=== PATIENT | female | born 1960 | race Caucasian/White ===

== ENCOUNTER → 2019-05-26 15:58 | Outpatient (CLI) | payer OTHER, SELFPAY ==
--- NOTE | 2019-05-26 | ECG_ITS ---
APPROVED REPORT Exam: Resting ECG HR:54 bpm ECG Measurements Heart Rate 54 AXES MO 138 P -4 QRSd 82 QRS 57 QT 442 T 37 QTc 419 <Conclusion> Sinus bradycardia Incomplete RBBB Otherwise normal ECG Electronically signed by : Uri Velasquez, 05/28/2019 16:58:23
[2019-05-26 17:48] LABS: Basophils # 0.1 K/mm3 (0-0.2); Basophils % 1.2 % (0.1-2.0); Eosinophils # 0.1 K/mm3 (0.0-0.4); Eosinophils % 1.9 % (0.1-12.0); Hematocrit 40.6 % (37.0-47.0); Hemoglobin 13.7 g/dL (12.2-16.2); Lymphocytes % 45.5 % (10-50); Mean Corpuscular HGB Conc 33.8 g/dL (31.8-35.4); Mean Corpuscular Hemoglobin 30.8 pg (27.0-31.2); Mean Corpuscular Volume 91.2 fl (81-99); Mean Platelet Volume 7.8 fl (7.4-10.4); Monocytes # 0.3 K/mm3 (0.1-1.0); Monocytes % 5.2 % (1.7-9.3); Neutrophils % 46.2 % (37.0-80.0); Platelet Count 267 K/mm3 (142-424); Red Blood Count 4.45 M/mm3 (4.20-5.40); Red Cell Distribution Width 12.5 % (11.5-17.5); White Blood Count 6.5 K/mm3 (4.8-10.8)
== END ==
PROVIDERS: Visit Provider Otolaryngology
DX: Z01.818 Encounter for other preprocedural examination (principal); D49.2 Neoplasm of unspecified behavior of bone, soft tissue, and skin; D23.122 Other benign neoplasm of skin of left lower eyelid, including canthus
CPT/HCPCS: 36415; 85025; 93005

== ENCOUNTER 2023-02-06 06:55 | Emergency (ER) | payer SELFPAY ==
[2023-02-06 07:05] VITALS: BP 146/84; PULSE 80; O2SAT 99
[2023-02-06 07:18] VITALS: BP 146/84; PULSE 84; RESP 15; TEMP 36.9; O2SAT 98; BMI 24.3
--- NOTE | 2023-02-06 07:28 | HMH.EDSKAF ---
Discharge Plan Disposition Patient Disposition: Home, Self-Care Prescriptions Prescriptions: New prednisone [prednisone] 20 mg tablet 20 mg PO BID Qty: 10 0RF Referrals Follow up/Referrals: Paul Whitten MD [Primary Care Provider] - See instructions Clinical Impressions Clinical Impression: Urticaria Instructions Patient Instructions: DI for Hives Discharge ED Provider: Fish (ED)Paul Skin/Abscess/FB HPI General Chief complaint: Skin/Abscess/Foreign Body Stated complaint: Rash; possible allergic reaction Time Seen by Provider: 02/06/23 07:28 Mode of Arrival: Ambulatory Source of Information: Patient and Medical Record Limitations: No Limitations Description of Symptoms (Recalled from ER Triage Doc. by RN): pt comes in with c/o rash that began sunday. pt reports that she used a new type of bath soap and began to develop the rash later that day. History of Present Illness HPI narrative: diffuse rash with itchy but no fever or resp sx and no mm lesions complaint: rash Onset (ago): day(s) Location: generalized Severity: moderate Quality: pruritic Consistency: intermittent Treatments prior to arrival: Benadryl Related Data Previous Rx's Medication Instructions Recorded prednisone 20 mg tablet 20 mg PO BID #10 tabs 02/06/23 Allergies Allergy/AdvReac Type Severity Reaction Status Date / Time No Known Allergies Allergy Verified 11/03/19 16:01 [facility] Disclaimer: The information contained in this section may have been updated after the patient was seen, as this information can be updated by other users. 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 current occupational exposures/hazards: No caffeine: Yes ROS Obtained: Yes All systems reviewed & no additional complaints except as documented Physical Exam General General appearance: alert Head Head exam: normocephalic Eye Eye exam: Present PERRL and EOMI ENT ENT exam: Present mucous membranes moist Neck Neck exam: Present trachea midline Respiratory Respiratory exam: Absent respiratory distress Cardiovascular Cardiovascular exam: Present regular rate Abdominal Exam Abdominal exam: Present soft Extremities Exam Extremities exam: Present full ROM Neurological Exam Neurological exam: Present alert and CN II-XII intact; Absent motor sensory deficit Psychiatric Psychiatric exam: Present normal affect Skin Skin exam: Present rash (hive type rash) Medical Decision Making Medical Records Medical records reviewed: Yes I reviewed the patient's medical records. Randy Inquiry Pt receiving controlled substance: No Vital Signs: 02/06/23 07:18 Temperature 98.4 F Temperature Source Oral Pulse Rate [Left] 84 Respiratory Rate 15 Blood Pressure [Right Arm] 146/84 H Blood Pressure Mean [Right Arm] 104 02 Sat by Pulse Oximetry 98 Lab Data Lab results reviewed: Yes I reviewed the patient's lab results. Medical Decision Narrative: hives type rash will use claritin and steroids and see pcp for follow up Critical Care Time Critical Care Time Critical Care Time: No Attestation: On 02/06/23, the high probability of a clinically significant, sudden or life threatening deterioration of the following system(s) required my full and direct attention, intervention and personal management. The time I documented below is in addition to time spent performing reported procedures but includes the following listed in this critical care notation.
[2023-02-06 07:52] VITALS: BP 137/93; PULSE 70; RESP 15
[2023-02-06 08:11] VITALS: BP 137/93; PULSE 70; RESP 15; TEMP 36.9; O2SAT 98
== END 2023-02-06 08:11 | disposition home or self-care (01) ==
PROVIDERS: Emergency Provider Emergency Medicine; PCP Emergency Medicine
DX: L50.9 Urticaria, unspecified (principal); Z87.891 Personal history of nicotine dependence
CPT/HCPCS: 96372; 99283; 99284

== ENCOUNTER 2024-01-04 17:56 | Emergency (ER) | payer SELFPAY ==
[2024-01-04 18:05] VITALS: BP 124/63; PULSE 71; RESP 18; TEMP 36.6; O2SAT 97; BMI 25.8
--- NOTE | 2024-01-04 18:28 | ED_ITS ---
Discharge Plan Disposition Patient Disposition: Home, Self-Care Condition: Good Prescriptions Prescriptions: New amoxicillin 875 mg tablet 875 mg PO Q12H Qty: 20 0RF ibuprofen 600 mg tablet 600 mg PO Q6HP PRN (Reason: Mild Pain) Qty: 30 0RF Referrals Follow up/Referrals: Agnes Lopez PA [Primary Care Provider] - See instructions Activity Restrictions/Add. Instructions Additional Instructions/Restrictions: Drink plenty of fluids. Take the medications as directed. Follow up with your regular doctor. Follow up with your dentist. GO TO THE ER FOR ANY WORSENING SYMPTOMS Clinical Impressions Clinical Impression: Dental abscess, Pain, dental, Jaw pain Instructions Patient Instructions: DI for Tooth Abscess, Ibuprofen, Amoxicillin Discharge ED Provider: Dennis Johnson [facility] General Stated complaint: dental pain Mode of Arrival: Ambulatory Source of Information: Patient Limitations: No Limitations Time Seen by Provider: 01/04/24 18:17 Description of Symptoms (Recalled from Triage Doc. by RN): Pt has left lower jaw pain. HEENT Symptoms (Recalled from RN notes): Yes Resp Symptoms (Recalled from RN notes): No Skin Symptoms (Recalled from RN notes): No MS Symptoms (Recalled from RN notes): No Functional Status (Recalled from RN notes): n/a History of Present Illness Provider Complaint: She states that for the past 5 days she has had worsening dental pain and swelling around one of her teeth in her left lower jaw. Related Data Previous Rx's Medication Instructions Recorded amoxicillin 875 mg tablet 875 mg PO Q12H #20 tabs 01/04/24 ibuprofen 600 mg tablet 600 mg PO Q6HP PRN Mild Pain #30 01/04/24 tabs Allergies Allergy/AdvReac Type Severity Reaction Status Date / Time No Known Allergies Allergy Verified 01/04/24 18:20 Worker's Comp Is this a Worker's Comp case?: No [facility] Disclaimer: The information contained in this section may have been updated after the patient was seen, as this information can be updated by other users. 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 current occupational exposures/hazards: No caffeine: Yes ROS Obtained: Yes All systems reviewed & no additional complaints except as documented Constitutional Constitutional: Denies chills and Denies fever(s) Eyes Eyes: Denies eye discharge ENT Ears, Nose, Mouth, and Throat: Reports as per HPI, Denies dizziness, Denies otalgia and Denies sore throat Cardiovascular Cardiovascular: Denies chest pain Respiratory Respiratory: Denies shortness of breath, Denies chest congestion, Denies cough, Denies stridor and Denies wheezing Gastrointestinal Gastrointestingal: Denies nausea or vomiting Musculoskeletal Musculoskeletal: Reports system reviewed and no additional complaints, except as documented and Denies arthralgias Integumentary/Breasts Skin/Breast: Denies rash Neurologic Neurologic: Denies dizziness and Denies paresthesias Allergic/Immunologic Allergic/Immunologic: Denies wheezing Physical Exam General General appearance: alert and in no apparent distress Head Head exam: atraumatic, normocephalic and normal inspection Eye Eye exam: Present normal appearance, PERRL and EOMI ENT ENT exam: Present mucous membranes moist, TM's normal bilaterally and normal external ear exam Expanded ENT Exam Nose exam: Absent sinus tenderness Nasal speculum exam: Bilateral: normal Mouth exam: Present normal external inspection; Absent drooling, tongue elevation or tongue swelling Teeth exam: Present dental caries, fractured tooth #, dental tenderness # and gingival swelling Throat exam: Present normal inspection Neck Neck exam: Present normal inspection, full ROM and trachea midline; Absent meningismus or lymphadenopathy Chest Chest inspection: Present normal inspection and symmetric chest wall rise; Absent tenderness Respiratory Respiratory exam: Present normal lung sounds bilaterally; Absent respiratory distress Cardiovascular Cardiovascular exam: Present regular rate and normal rhythm; Absent JVD Abdominal Exam Abdominal exam: Present soft and normal bowel sounds; Absent distention, tenderness or guarding Extremities Exam Extremities exam: Present normal inspection, full ROM and normal capillary refill; Absent calf tenderness Back Exam Back exam: Present normal inspection; Absent tenderness Neurological Exam Neurological exam: Present alert and oriented X3 Psychiatric Psychiatric exam: Present normal affect and normal mood Skin Skin exam: Present warm, dry, intact and normal color Lymphatic Lymphatic Findings: no adenopathy Medical Decision Making Medical Records Medical records reviewed: No I reviewed the patient's medical records. Randy Inquiry Pt receiving controlled substance: No Vital Signs: 01/04/24 18:05 Temperature 97.9 F Temperature Source Oral Pulse Rate [Right Radial] 71 Respiratory Rate 18 Blood Pressure [Right Arm] 124/63 Blood Pressure Mean [Right Arm] 83 Blood Pressure Source [Right Arm] Automatic Cuff Blood Pressure Position [Right Arm] Sitting 02 Sat by Pulse Oximetry 97 Oxygen Delivery Method Room Air
[2024-01-04] MEDS: LIDOCAINE 1% 5ML PF VIAL IM (19:06)
[2024-01-04] MEDS: cefTRIAXone 1GM VIAL 1 GM IM (19:06)
[2024-01-04 19:22] VITALS: BP 124/63; PULSE 71; RESP 18; TEMP 36.6; O2SAT 97
== END 2024-01-04 19:22 | disposition home or self-care (01) ==
PROVIDERS: Emergency Provider Nurse Practitioner Family; PCP Physician Assistant
DX: K04.7 Periapical abscess without sinus (principal); R68.84 Jaw pain; Z87.891 Personal history of nicotine dependence
CPT/HCPCS: 96372; 99204; 99212; G0463; J0696

== ENCOUNTER 2024-02-13 07:20 | Emergency (ER) | payer SELFPAY ==
[2024-02-13 07:30] VITALS: BP 172/94; PULSE 66; O2SAT 97
--- NOTE | 2024-02-13 07:33 | CT_ITS ---
PROCEDURE INFORMATION: Exam: CT Abdomen And Pelvis With Contrast Exam date and time: 02/13/2024 8:18 AM Age: 63 years old Clinical indication: Abdominal pain; Generalized; Additional info: Abd bloating, midline and R paraspinal lumbar pain TECHNIQUE: Imaging protocol: Computed tomography of the abdomen and pelvis with contrast. Radiation optimization: All CT scans at this facility use at least one of these dose optimization techniques: automated exposure control; mA and/or kV adjustment per patient size (includes targeted exams where dose is matched to clinical indication); or iterative reconstruction. Contrast material: ISOVUE; Contrast volume: 75 ml; Contrast route: IV; COMPARISON: No relevant prior studies available. FINDINGS: Liver: Diffuse fatty infiltration of the liver. Incidental small 7 mm left hepatic lobe lateral segment low-attenuation lesion, cyst or hemangioma. Gallbladder and bile ducts: Small calcified gallstone within nondistended gallbladder. No significant biliary ductal dilatation. Pancreas: No acute abnormality. No ductal dilation. Spleen: No acute abnormality. Adrenal glands: No significant or acute abnormality. Kidneys and ureters: No acute abnormality. No hydronephrosis. Stomach and bowel: No significant large or small bowel distention. No evidence of diverticulitis. Appendix: Grossly normal nondilated visualized appendix. Intraperitoneal space: Nonspecific trace free pelvic fluid. No free air. Vasculature: Mild atherosclerotic vascular calcification. No aortic aneurysm. Lymph nodes: No enlarged lymph nodes. Urinary bladder: Mildly thickened nondistended urinary bladder. Reproductive: No acute abnormality. Small bilateral pelvic tubal ligation clips. Bones/joints: No acute osseous abnormality. No dislocation. Soft tissues: No significant soft tissue abnormalities. IMPRESSION: 1. Cholelithiasis. 2. Diffuse fatty infiltration of the liver. 3. Mildly thickened urinary bladder which may be secondary to nondistention versus cystitis/UTI.
[2024-02-13 07:34] VITALS: BP 156/90; PULSE 75; RESP 20; TEMP 37; O2SAT 97; BMI 24.8
--- NOTE | 2024-02-13 07:35 | HMH.EDGENADL ---
Discharge Plan Disposition Patient Disposition: Home, Self-Care Prescriptions Prescriptions: New nitrofurantoin monohyd/m-cryst [Macrobid] 100 mg capsule 100 mg PO BID 5 Days Qty: 10 0RF Rx Instructions: must administer with a meal/food lidocaine 5 % adhesive patch,medicated 1 patch topical DAILY Qty: 15 0RF Rx Instructions: leave on most painful area for up to 12 hrs methocarbamol 500 mg tablet 1,000 mg PO Q8H PRN (Reason: back pain and muscle spasm) Qty: 30 0RF No Action amoxicillin 875 mg tablet 875 mg PO Q12H Qty: 20 0RF ibuprofen 600 mg tablet 600 mg PO Q6HP PRN (Reason: Mild Pain) Qty: 30 0RF Referrals Follow up/Referrals: Provider,Referral, MD [Primary Care Provider] - See instructions Activity Restrictions/Add. Instructions Additional Instructions/Restrictions: At this time it was felt you are safe to be discharged home. If new or worsening symptoms please do not hesitate to return the emergency department. If symptoms persist please follow-up with your family doctor as you are able. It was also found that your liver markers are mildly elevated and you have a fatty liver, there is nothing emergent to do about this however we do need to keep an eye on it over time so please follow-up with your family doctor as you are able. Please take your medications as prescribed. Clinical Impressions Clinical Impression: Back pain, UTI (urinary tract infection), Transaminitis, Fatty liver Instructions Patient Instructions: DI for Low Back Pain, DI for Urinary Tract Infection (UTI) Discharge ED Provider: Jeffery Gonzales General Adult HPI General Chief complaint: Back Pain/Injury Stated complaint: pain in lower back Time Seen by Provider: 02/13/24 07:25 History of Present Illness HPI narrative: Patient is a 63-year-old female with no chronic comorbidities not on chronic medications who presents emergency department for evaluation of back pain. 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 She has midline lumbar back pain and right paraspinal back pain. There has been associated subacute bloating. No weight loss or night sweats. No abdominal pain, no chest pain. No incontinence. Does not radiate down the legs. No other acute complaints at this time. Related Data Previous Rx's Medication Instructions Recorded amoxicillin 875 mg tablet 875 mg PO Q12H #20 tabs 01/04/24 ibuprofen 600 mg tablet 600 mg PO Q6HP PRN Mild Pain #30 01/04/24 tabs lidocaine 5 % topical patch 1 patch topical DAILY #15 ea 02/13/24 methocarbamol 500 mg tablet 1,000 mg (2 x 500 mg) PO Q8H PRN 02/13/24 back pain and muscle spasm #30 tabs nitrofurantoin 100 mg PO BID 5 days #10 caps 02/13/24 monohydrate/macrocrystals 100 mg capsule (Macrobid) Allergies Allergy/AdvReac Type Severity Reaction Status Date / Time No Known Allergies Allergy Verified 01/04/24 18:20 [facility] Disclaimer: The information contained in this section may have been updated after the patient was seen, as this information can be updated by other users. 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 current occupational exposures/hazards: No caffeine: Yes ROS Obtained: Yes Systems reviewed as appropriate & no additional complaints except as documented Physical Exam General General appearance: alert and in no apparent distress Head Head exam: atraumatic and normocephalic Eye Eye exam: Present EOMI ENT ENT exam: Present mucous membranes moist Neck Neck exam: Present normal inspection Chest Chest inspection: Present normal inspection and symmetric chest wall rise Respiratory Respiratory exam: Present normal lung sounds bilaterally; Absent respiratory distress Cardiovascular Cardiovascular exam: Present regular rate and normal rhythm Abdominal Exam Abdominal exam: Present soft; Absent tenderness Extremities Exam Extremities exam: Present normal inspection Back Exam Back exam: Absent tenderness or rashes Neurological Exam Neurological exam: Present alert and CN II-XII intact; Absent motor sensory deficit Psychiatric Psychiatric exam: Present normal affect Skin Skin exam: Present warm and dry Medical Decision Making Randy Inquiry Pt receiving controlled substance: No Vital Signs: 02/13/24 07:30 02/13/24 07:34 02/13/24 08:01 Temperature 98.6 F Temperature Source Oral Pulse Rate 66 67 Pulse Rate [Left Radial] 75 Respiratory Rate 20 Blood Pressure 172/94 H 148/73 H Blood Pressure [Right Arm] 156/90 H Blood Pressure Mean [Right Arm] 112 02 Sat by Pulse Oximetry 97 97 98 Oxygen Delivery Method Room Air 02/13/24 08:30 Temperature Temperature Source Pulse Rate 63 Pulse Rate [Left Radial] Respiratory Rate Blood Pressure 168/84 H Blood Pressure [Right Arm] Blood Pressure Mean [Right Arm] 02 Sat by Pulse Oximetry 98 Oxygen Delivery Method Lab Data Lab Results 02/13/24 07:27: Urine Color Yellow, Urine Appearance Clear, Urine pH 6.0, Ur Specific [place] >= 1.030, Urine Protein Negative, Urine Glucose (UA) Negative, Urine Ketones Negative, Urine Blood Negative, Urine Nitrate Negative, Urine Bilirubin Negative, Urine Urobilinogen 0.2, Ur Leukocyte Esterase Negative, Urine RBC None, Urine WBC Occasional, Ur Squamous Epith Cells 5-10, Urine Bacteria 1+, Urine Mucus 1+ 02/13/24 07:49: WBC 6.6, RBC 5.00, Hgb 15.0, Hct 46.2, MCV 92.3, MCH 29.9, MCHC 32.4, RDW 13.2, Plt Count 266, MPV 8.5, Neut % (Auto) 44.9, Lymph % (Auto) 28.0, Tate % (Auto) 21.4 H, Eos % (Auto) 3.4, Baso % (Auto) 2.3 H, Neut # (Auto) 3.0, Lymph # (Auto) 1.9, Tate # (Auto) 1.4 H, Eos # (Auto) 0.2, Baso # (Auto) 0.2, Total Counted 100, Neutrophils % (Manual) 38 L, Band Neutrophils % 2.0, Lymphocytes % (Manual) 45, Monocytes % (Manual) 8, Eosinophils % (Manual) 5 H, Basophils % (Manual) 2.0 H, Platelet Estimate Normal, RBC Morphology Normal, Sodium 140, Potassium 4.3, Chloride 105, Carbon Dioxide 28, Anion Gap 11.3, BUN 14, Creatinine 0.80, Estimated Creat Clear 63, Estimated GFR 72, Est GFR ( Amer) 88, Glucose 105 H, Calcium 9.5, Total Bilirubin 0.9, AST 84 H, ALT 93 H, Alkaline Phosphatase 81, Total Protein 7.4, Albumin 4.3, Globulin 3.1, Albumin/Globulin Ratio 1.4 02/13/24 07:49 02/13/24 07:49 Orders (Tests/Meds): ED MEDICATIONS Discontinued Medications Generic Name Dose Route Start Last Admin Trade Name Dipti PRN Reason Stop Dose Admin Acetaminophen 1,000 mg 02/13/24 07:33 02/13/24 07:45 Acetaminophen 500mg Tab PO 02/13/24 07:34 1,000 mg ONCE ONE Administration Iopamidol 75 ml 02/13/24 08:23 02/13/24 08:24 Iopamidol-370 (76%);100ml Bottle IV 02/13/24 08:24 75 ml ONCE ONE Administration Ketorolac Tromethamine 30 mg 02/13/24 07:33 02/13/24 07:45 Ketorolac 30mg/Ml Vial IV 02/13/24 07:34 30 mg ONCE ONE Administration Lidocaine 1 each 02/13/24 07:33 02/13/24 07:46 Lidocaine 5% Transdermal Patch TP 02/13/24 07:34 1 each ONCE ONE Administration Methocarbamol 500 mg 02/13/24 07:35 02/13/24 07:45 Methocarbamol 500mg Tablet PO 02/13/24 07:36 500 mg ONCE ONE Administration Sodium Chloride 10 ml 02/13/24 08:23 02/13/24 08:24 Sodium Chloride 0.9% 10ml Syr (Rad Only) IV 02/13/24 08:24 10 ml ONCE ONE Administration ORDERS Category Date Time Status CT abdomen pelvis w con Stat Cat Scan 02/13/24 07:33 Completed CBC w/Auto Diff [Complete Blood Count Auto Diff] Stat Lab 02/13/24 07:49 Completed CMP [Comprehensive Metabolic Panel] Stat Lab 02/13/24 07:49 Completed UA [Urinalysis and Microscopic] Stat Lab 02/13/24 07:27 Completed Medical Decision Narrative: In summary patient is a 63-year-old female past medical history described above who presents emergency department for evaluation of back pain and bloating. Patient is hemodynamically stable nontoxic-appearing upon arrival, afebrile. Differential diagnosis includes lumbar ago, malignancy, urinary tract infection, among others. Workup will be conducted with hematologic labs, CT abdomen pelvis with IV contrast. Initial inventions include multimodal pain control with Tylenol, Toradol, methocarbamol, lidocaine patch. Workup reviewed by me, hematologic labs are nonactionable, no significant leukocytosis, no JAZIEL or critical electrolyte abnormality, there is mild transaminitis and fatty infiltration of the liver, no evidence of acute decompensated liver failure hyperbilirubinemia that would warrant further investigation at this time. Urinalysis not strongly consistent with infection however there is leukocyturia, bacteria. CT imaging of the abdomen pelvis remarkable for cholelithiasis, diffuse fatty infiltration of the liver, mildly thickened urinary bladder. These findings were relayed to patient at bedside. Patient will be treated for equivocal urinary tract infection with Macrobid. I do think the majority of her symptoms are due to lumbago and therefore she will be discharged with methocarbamol and lidocaine patch and outpatient follow-up. Upon repeat evaluation patient continued to be well-appearing, ambulatory bedside and is appropriate for discharge at this time. Critical Care Critical Care Time Critical Care Time: No
[2024-02-13 07:43] LABS: Microscopic, Urine URINE MICROSCOPIC (MICROSCOPIC)
[2024-02-13 07:45] LABS: Appearance,Urine CLEAR (Clear); Bilirubin,Urine Negative (Negative); Blood, Urine Negative (Negative); Color,Urine YELLOW (Yellow); Glucose,Urine (UA) Negative (Negative); Ketones,Urine Negative (Negative); Leukocyte Esterase,Urine Negative (Negative); Nitrate,Urine Negative (Negative); Protein,Urine Negative (Negative); Specific Gravity, Urine >= 1.030 (1.005-1.030); Urobilinogen,Urine 0.2 EU/dl (0.2)
[2024-02-13] MEDS: ACETAMINOPHEN 500MG TAB 1000 MG PO (07:45)
[2024-02-13] MEDS: METHOCARBAMOL 500MG TABLET 500 MG PO (07:45)
[2024-02-13] MEDS: KETOROLAC 30MG/ML VIAL 30 MG IV (07:45)
[2024-02-13] MEDS: LIDOCAINE 5% TRANSDERMAL PATCH 1 EACH TP (07:46)
[2024-02-13 07:57] LABS: Basophils # 0.2 K/mm3 (0-0.2); Basophils % 2.3 % (0.1-2.0); Eosinophils # 0.2 K/mm3 (0.0-0.4); Eosinophils % 3.4 % (0.1-12.0); Hematocrit 46.2 % (37.0-47.0); Lymphocytes # 1.9 K/mm3 (0.7-4.5); Mean Corpuscular HGB Conc 32.4 g/dL (31.8-35.4); Mean Corpuscular Hemoglobin 29.9 pg (27.0-31.2); Mean Corpuscular Volume 92.3 fl (81-99); Mean Platelet Volume 8.5 fl (7.4-10.4); Monocytes # 1.4 K/mm3 (0.1-1.0); Monocytes % 21.4 % (1.7-9.3); Neutrophils % 44.9 % (37.0-80.0); Platelet Count 266 K/mm3 (142-424); Red Cell Distribution Width 13.2 % (11.5-17.5); White Blood Count 6.6 K/mm3 (4.8-10.8)
[2024-02-13 07:57] LABS: Bacteria,Urine 1+ /lpf; Mucus,Urine 1+ /lpf; WBC,Urine Occasional #/hpf (0-3)
[2024-02-13 08:01] VITALS: BP 148/73; PULSE 67; O2SAT 98
[2024-02-13 08:01] LABS: MANUAL DIFFERENTIAL MANUAL DIFFERENTIAL (MANUAL DIFF)
[2024-02-13 08:03] LABS: Alanine Aminotransferase 93 U/L (12-78); Albumin Level 4.3 g/dl (3.5-5.0); Albumin/Globulin Ratio 1.4 (1.1-1.8); Alkaline Phosphatase 81 U/L (38-126); Anion Gap 11.3 mEq/L (5-15); Aspartate Amino Transferase 84 U/L (14-36); Bilirubin,Total 0.9 mg/dl (0.2-1.3); Blood Urea Nitrogen 14 mg/dl (7-17); Calcium 9.5 mg/dl (8.4-10.2); Carbon Dioxide 28 mmol/L (22.0-30.0); Chloride 105 mmol/L (98-107); Creatinine Clearance Estimated 63 mL/min (50-200); Estimated Glomerular Filt Rate 72 ml/min (>60); GFR (African American) 88 ML/MIN (>60); Globulin 3.1 g/dL (1.3-3.2); Glucose 105 mg/dl (74-100); Potassium 4.3 mmoL/L (3.5-5.1); Sodium 140 mmol/L (136-145); Total Protein,Serum 7.4 g/dl (6.3-8.2)
[2024-02-13] MEDS: SODIUM CHLORIDE 0.9% 10ML SYR (RAD ONLY) 10 ML IV (08:24)
[2024-02-13] MEDS: IOPAMIDOL-370 (76%);100ML BOTTLE 75 ML IV (08:24)
[2024-02-13 08:30] VITALS: BP 168/84; PULSE 63; O2SAT 98
[2024-02-13 08:49] LABS: Eosinophils % 5 % (0-3); Lymphocytes % 45 % (10-50); Monocytes % 8 % (2-9); Neutrophils % 38 % (42-76); Total Cells Counted 100
[2024-02-13 08:54] LABS: Platelet Estimate Normal; RBC Morphology Normal
[2024-02-13 09:38] VITALS: BP 164/85; PULSE 64; RESP 16; TEMP 36.7; O2SAT 97
== END 2024-02-13 09:39 | disposition home or self-care (01) ==
PROVIDERS: Emergency Provider Emergency Medicine
DX: N39.0 Urinary tract infection, site not specified (principal); M54.59 Other low back pain; R74.01 Elevation of levels of liver transaminase levels; K76.0 Fatty (change of) liver, not elsewhere classified
CPT/HCPCS: 74177; 80053; 81001; 85007; 85025; 96374; 99284; Q9967

== ENCOUNTER 2024-06-01 14:18 | Emergency (ER) | payer SELFPAY ==
[2024-06-01 14:20] VITALS: BP 159/79; PULSE 63; RESP 19; TEMP 36.6; O2SAT 97; BMI 23.8
--- NOTE | 2024-06-01 14:26 | ED_ITS ---
Discharge Plan Disposition Patient Disposition: Home, Self-Care Condition: Good Prescriptions Prescriptions: New methocarbamol 750 mg tablet 750 mg PO Q6H PRN (Reason: muscle spasm) Qty: 20 0RF lidocaine 5 % adhesive patch,medicated 1 patch topical DAILY Qty: 30 0RF Rx Instructions: leave on most painful area for up to 12 hrs No Action amoxicillin 875 mg tablet 875 mg PO Q12H Qty: 20 0RF ibuprofen 600 mg tablet 600 mg PO Q6HP PRN (Reason: Mild Pain) Qty: 30 0RF nitrofurantoin monohyd/m-cryst [Macrobid] 100 mg capsule 100 mg PO BID 5 Days Qty: 10 0RF Rx Instructions: must administer with a meal/food lidocaine 5 % adhesive patch,medicated 1 patch topical DAILY Qty: 15 0RF Rx Instructions: leave on most painful area for up to 12 hrs methocarbamol 500 mg tablet 1,000 mg PO Q8H PRN (Reason: back pain and muscle spasm) Qty: 30 0RF Referrals Follow up/Referrals: Provider,Referral, MD [Primary Care Provider] - See instructions Activity Restrictions/Add. Instructions Additional Instructions/Restrictions: Follow-up with your PCP if your symptoms persist worsen or change. Return to the ER for any worsening signs or symptoms as needed Clinical Impressions Clinical Impression: Acute back pain Qualifiers: Back pain location: thoracic back pain Back pain laterality: right Qualified Code(s): M54.6 - Pain in thoracic spine Instructions Patient Instructions: DI for Thoracic Back Pain Print Language Print Language: Romanian Discharge ED Provider: Parviz Wiley General Adult HPI <LADONNA Blackwell - Last Filed: 06/01/24 16:49> General Chief complaint: PAIN Stated complaint: back pain, no known accident Time Seen by Provider: 06/01/24 14:24 History of Present Illness HPI narrative: Patient presents for evaluation of back pain. Patient states that she was setting down her granddaughter and felt a sharp pain and that her right mid back. It has been hurting ever since. She has no numbness no tingling no radiation. Related Data Previous Rx's ?Medication ?Instructions ?Recorded amoxicillin 875 mg tablet 875 mg PO Q12H #20 tabs 01/04/24 ibuprofen 600 mg tablet 600 mg PO Q6HP PRN Mild Pain #30 01/04/24 tabs lidocaine 5 % topical patch 1 patch topical DAILY #15 ea 02/13/24 methocarbamol 500 mg tablet 1,000 mg (2 x 500 mg) PO Q8H PRN 02/13/24 back pain and muscle spasm #30 tabs nitrofurantoin 100 mg PO BID 5 days #10 caps 02/13/24 monohydrate/macrocrystals 100 mg capsule (Macrobid) lidocaine 5 % topical patch 1 patch topical DAILY #30 ea 06/01/24 methocarbamol 750 mg tablet 750 mg PO Q6H PRN muscle spasm #20 06/01/24 tabs Allergies Allergy/AdvReac Type Severity Reaction Status Date / Time No Known Allergies Allergy Verified 01/04/24 18:20 PFSH <LADONNA Blackwell - Last Filed: 06/01/24 16:49> [facility] Disclaimer: The information contained in this section may have been updated after the patient was seen, as this information can be updated by other users. 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 Tender to palpation without any bony deformity Neurological Exam Neurological exam: Present alert, oriented X3 and normal gait; Absent motor sensory deficit Medical Decision Making <LADONNA Blackwell - Last Filed: 06/01/24 16:49> Medical Records Medical records reviewed: Yes I reviewed the patient's medical records. Randy Inquiry Pt receiving controlled substance: No Vital Signs: 06/01/24 14:20 06/01/24 15:39 06/01/24 15:49 Temperature 97.8 F 97.8 F Temperature Source Oral Pulse Rate 56 L 53 L Pulse Rate [Left Radial] 63 Respiratory Rate 19 16 Blood Pressure 139/85 139/85 Blood Pressure [Right Arm] 159/79 H Blood Pressure Mean [Right Arm] 105 02 Sat by Pulse Oximetry 97 99 Oxygen Delivery Method Room Air Room Air Room Air Lab Data Lab results reviewed: Yes I reviewed the patient's lab results. Lab Results 06/01/24 14:28: Urine Color Yellow, Urine Appearance Clear, Urine pH 6.0, Ur Specific [place] 1.025, Urine Protein Negative, Urine Glucose (UA) Negative, Urine Ketones Negative, Urine Blood Negative, Urine Nitrate Negative, Urine Bilirubin Negative, Urine Urobilinogen 0.2, Ur Leukocyte Esterase Negative, Urine RBC None, Urine WBC None, Ur Squamous Epith Cells Occasional 06/01/24 14:41: WBC 6.2, RBC 4.96, Hgb 15.7, Hct 46.6, MCV 93.9, MCH 31.6 H, MCHC 33.6, RDW 13.4, Plt Count 264, MPV 8.5, Neut % (Auto) 51.1, Lymph % (Auto) 38.4, [place] % (Auto) 7.0, Eos % (Auto) 1.8, Baso % (Auto) 1.8, Neut # (Auto) 3.2, Lymph # (Auto) 2.4, [place] # (Auto) 0.4, Eos # (Auto) 0.1, Baso # (Auto) 0.1, Sodium 136, Potassium 4.2, Chloride 105, Carbon Dioxide 27, Anion Gap 8.2, BUN 12, Creatinine 0.70, Estimated Creat Clear 60, Estimated GFR 84, Est GFR ( Amer) 102, Glucose 91, Calcium 9.1, Magnesium 2.1, Total Bilirubin 0.8, AST 94 H, ALT 98 H, Alkaline Phosphatase 78, Total Protein 8.0, Albumin 4.6, G lobulin 3.4 H, Albumin/Globulin Ratio 1.4 06/01/24 14:41 06/01/24 14:41 Orders (Tests/Meds): ED MEDICATIONS Discontinued Medications Generic Name Dose Route Start Last Admin Trade Name Freq PRN Reason Stop Dose Admin Acetaminophen 1,000 mg 06/01/24 14:34 06/01/24 14:48 Acetaminophen 1,000mg/100ml Vial IV 06/01/24 14:35 1,000 mg ONCE ONE Administration Dexamethasone Sodium Phosphate 10 mg 06/01/24 14:34 06/01/24 14:48 Dexamethasone 4mg/Ml 5ml Mdv IV 06/01/24 14:35 10 mg ONCE ONE Administration Lactated Ringer's 1,000 mls @ 999 mls/hr 06/01/24 14:34 06/01/24 14:49 Lactated Ringer's 1000 Ml Bag IV 06/01/24 15:34 999 mls/hr .Q1H1M ONE Administration Ketorolac Tromethamine 15 mg 06/01/24 14:34 06/01/24 14:49 Ketorolac 30mg/Ml Vial IV 06/01/24 14:35 15 mg ONCE ONE Administration Lidocaine 1 each 06/01/24 14:34 06/01/24 14:49 Lidocaine 5% Transdermal Patch TP 06/01/24 14:35 1 each ONCE ONE Administration Methocarbamol 500 mg 06/01/24 14:34 06/01/24 14:49 Methocarbamol 500mg Tablet PO 06/01/24 14:35 500 mg ONCE ONE Administration ORDERS Category Date Time Status CBC w/Auto Diff [Complete Blood Count Auto Diff] Stat Lab 06/01/24 14:41 Completed CMP [Comprehensive Metabolic Panel] Stat Lab 06/01/24 14:41 Completed Magnesium Stat Lab 06/01/24 14:41 Completed UA [Urinalysis and Microscopic] Stat Lab 06/01/24 14:28 Completed Medical Decision Narrative: In summary patient is a 64-year-old female who presents to the emergency department for evaluation of right thoracic back pain. Patient is hemodynamically stable upon arrival, afebrile. Exam is remarkable for tenderness to palpation in the musculature of the thoracic paraspinous muscles without any midline tenderness deformity contusions abrasions.. Differential diagnosis includes muscle spasm versus UTI versus kidney stone versus cholecystitis etc. Initial workup will be conducted with hematologic labs urinalysis. Initial interventions include crystalloid bolus Toradol Tylenol Decadron Robaxin lidocaine patch. Initial workup reviewed by me shows her hematologic labs are nonactionable and urinalysis is normal. Upon repeat evaluation patient had complete resolution of her symptoms after initial intervention. Given this patient is appropriate for discharge with prescription sent for lidocaine patch and Robaxin. Patient to return to ER follow-up with PCP for any worsening signs or symptoms as needed <Parviz Wiley MD - Last Filed: 06/01/24 20:07> Vital Signs: 06/01/24 14:20 06/01/24 15:39 06/01/24 15:49 Temperature 97.8 F 97.8 F Temperature Source Oral Pulse Rate 56 L 53 L Pulse Rate [Left Radial] 63 Respiratory Rate 19 16 Blood Pressure 139/85 139/85 Blood Pressure [Right Arm] 159/79 H Blood Pressure Mean [Right Arm] 105 02 Sat by Pulse Oximetry 97 99 Oxygen Delivery Method Room Air Room Air Room Air Lab Data Lab Results 06/01/24 14:28: Urine Color Yellow, Urine Appearance Clear, Urine pH 6.0, Ur Specific [place] 1.025, Urine Protein Negative, Urine Glucose (UA) Negative, Urine Ketones Negative, Urine Blood Negative, Urine Nitrate Negative, Urine Bilirubin Negative, Urine Urobilinogen 0.2, Ur Leukocyte Esterase Negative, Urine RBC None, Urine WBC None, Ur Squamous Epith Cells Occasional 06/01/24 14:41: WBC 6.2, RBC 4.96, Hgb 15.7, Hct 46.6, MCV 93.9, MCH 31.6 H, MCHC 33.6, RDW 13.4, Plt Count 264, MPV 8.5, Neut % (Auto) 51.1, Lymph % (Auto) 38.4, [place] % (Auto) 7.0, Eos % (Auto) 1.8, Baso % (Auto) 1.8, Neut # (Auto) 3.2, Lymph # (Auto) 2.4, [place] # (Auto) 0.4, Eos # (Auto) 0.1, Baso # (Auto) 0.1, Sodium 136, Potassium 4.2, Chloride 105, Carbon Dioxide 27, Anion Gap 8.2, BUN 12, Creatinine 0.70, Estimated Creat Clear 60, Estimated GFR 84, Est GFR ( Amer) 102, Glucose 91, Calcium 9.1, Magnesium 2.1, Total Bilirubin 0.8, AST 94 H, ALT 98 H, Alkaline Phosphatase 78, Total Protein 8.0, Albumin 4.6, G lobulin 3.4 H, Albumin/Globulin Ratio 1.4 Orders (Tests/Meds): ED MEDICATIONS Discontinued Medications Generic Name Dose Route Start Last Admin Trade Name Dipti PRN Reason Stop Dose Admin Acetaminophen 1,000 mg 06/01/24 14:34 06/01/24 14:48 Acetaminophen 1,000mg/100ml Vial IV 06/01/24 14:35 1,000 mg ONCE ONE Administration Dexamethasone Sodium Phosphate 10 mg 06/01/24 14:34 06/01/24 14:48 Dexamethasone 4mg/Ml 5ml Mdv IV 06/01/24 14:35 10 mg ONCE ONE Administration Lactated Ringer's 1,000 mls @ 999 mls/hr 06/01/24 14:34 06/01/24 14:49 Lactated Ringer's 1000 Ml Bag IV 06/01/24 15:34 999 mls/hr .Q1H1M ONE Administration Ketorolac Tromethamine 15 mg 06/01/24 14:34 06/01/24 14:49 Ketorolac 30mg/Ml Vial IV 06/01/24 14:35 15 mg ONCE ONE Administration Lidocaine 1 each 06/01/24 14:34 06/01/24 14:49 Lidocaine 5% Transdermal Patch TP 06/01/24 14:35 1 each ONCE ONE Administration Methocarbamol 500 mg 06/01/24 14:34 06/01/24 14:49 Methocarbamol 500mg Tablet PO 06/01/24 14:35 500 mg ONCE ONE Administration ORDERS Category Date Time Status CBC w/Auto Diff [Complete Blood Count Auto Diff] Stat Lab 06/01/24 14:41 Completed CMP [Comprehensive Metabolic Panel] Stat Lab 06/01/24 14:41 Completed Magnesium Stat Lab 06/01/24 14:41 Completed UA [Urinalysis and Microscopic] Stat Lab 06/01/24 14:28 Completed Medical Decision Narrative: In summary patient is a 64-year-old female who presents to the emergency department for evaluation of right thoracic back pain. Patient is hemodynamically stable upon arrival, afebrile. Exam is remarkable for tenderness to palpation in the musculature of the thoracic paraspinous muscles without any midline tenderness deformity contusions abrasions.. Differential diagnosis includes muscle spasm versus UTI versus kidney stone versus cholecystitis etc. Initial workup will be conducted with hematologic labs urinalysis. Initial interventions include crystalloid bolus Toradol Tylenol Decadron Robaxin lidocaine patch. Initial workup reviewed by me shows her hematologic labs are nonactionable and urinalysis is normal. Upon repeat evaluation patient had complete resolution of her symptoms after initial intervention. Given this patient is appropriate for discharge with prescription sent for lidocaine patch and Robaxin. Patient to return to ER follow-up with PCP for any worsening signs or symptoms as needed I was consulted by the RUFINA, and we discussed the complexity of the problems being addressed. I approved the treatment and management plan for this patient's care in the Emergency Department, thus performing a substantive portion of the medical decision making. Parviz Wiley MD Critical Care <LADONNA Blackwell - Last Filed: 06/01/24 16:49> Critical Care Time Critical Care Time: No
[2024-06-01 14:40] LABS: Microscopic, Urine URINE MICROSCOPIC (MICROSCOPIC)
[2024-06-01 14:48] LABS: Appearance,Urine CLEAR (Clear); Bilirubin,Urine Negative (Negative); Blood, Urine Negative (Negative); Color,Urine YELLOW (Yellow); Glucose,Urine (UA) Negative (Negative); Ketones,Urine Negative (Negative); Leukocyte Esterase,Urine Negative (Negative); Nitrate,Urine Negative (Negative); Protein,Urine Negative (Negative); Specific Gravity, Urine 1.025 (1.005-1.030); Urobilinogen,Urine 0.2 EU/dl (0.2)
[2024-06-01] MEDS: DEXAMETHASONE 4MG/ML 5ML MDV 10 MG IV (14:48)
[2024-06-01] MEDS: ACETAMINOPHEN 1,000MG/100ML VIAL 1000 MG IV (14:48)
[2024-06-01] MEDS: KETOROLAC 30MG/ML VIAL 15 MG IV (14:49)
[2024-06-01] MEDS: METHOCARBAMOL 500MG TABLET 500 MG PO (14:49)
[2024-06-01] MEDS: LACTATED RINGERS 1000ML 1,000 ML 999 ML IV (14:49)
[2024-06-01] MEDS: LIDOCAINE 5% TRANSDERMAL PATCH 1 EACH TP (14:49)
[2024-06-01 14:50] LABS: Basophils # 0.1 K/mm3 (0-0.2); Basophils % 1.8 % (0.1-2.0); Eosinophils # 0.1 K/mm3 (0.0-0.4); Eosinophils % 1.8 % (0.1-12.0); Hematocrit 46.6 % (37.0-47.0); Hemoglobin 15.7 g/dL (12.2-16.2); Lymphocytes # 2.4 K/mm3 (0.7-4.5); Lymphocytes % 38.4 % (10-50); Mean Corpuscular HGB Conc 33.6 g/dL (31.8-35.4); Mean Corpuscular Hemoglobin 31.6 pg (27.0-31.2); Mean Corpuscular Volume 93.9 fl (81-99); Mean Platelet Volume 8.5 fl (7.4-10.4); Monocytes # 0.4 K/mm3 (0.1-1.0); Neutrophils # 3.2 K/mm3 (1.8-7.8); Neutrophils % 51.1 % (37.0-80.0); Platelet Count 264 K/mm3 (142-424); Red Blood Count 4.96 M/mm3 (4.20-5.40); Red Cell Distribution Width 13.4 % (11.5-17.5); White Blood Count 6.2 K/mm3 (4.8-10.8)
[2024-06-01 14:58] LABS: Albumin Level 4.6 g/dl (3.5-5.0); Chloride 105 mmol/L (98-107)
[2024-06-01 14:59] LABS: Potassium 4.2 mmoL/L (3.5-5.1); Sodium 136 mmol/L (136-145)
[2024-06-01 15:01] LABS: Alanine Aminotransferase 98 U/L (12-78); Aspartate Amino Transferase 94 U/L (14-36); Blood Urea Nitrogen 12 mg/dl (7-17); Creatinine Clearance Estimated 60 mL/min (50-200); Estimated Glomerular Filt Rate 84 ml/min (>60); GFR (African American) 102 ML/MIN (>60)
[2024-06-01 15:02] LABS: Albumin/Globulin Ratio 1.4 (1.1-1.8); Alkaline Phosphatase 78 U/L (38-126); Anion Gap 8.2 mEq/L (5-15); Bilirubin,Total 0.8 mg/dl (0.2-1.3); Calcium 9.1 mg/dl (8.4-10.2); Carbon Dioxide 27 mmol/L (22.0-30.0); Globulin 3.4 g/dL (1.3-3.2); Glucose 91 mg/dl (74-100); Magnesium 2.1 mg/dl (1.6-2.3)
--- NOTE | 2024-06-01 15:02 | PC.NURSE ---
Rounded on pt. No needs voiced at this time. Call light remains within reach.
[2024-06-01 15:04] LABS: Squamous Epithelial Cell,Urine Occasional #/hpf (0-5)
[2024-06-01 15:39] VITALS: BP 139/85; PULSE 56; O2SAT 99
--- NOTE | 2024-06-01 15:39 | PC.NURSE ---
Rounded on pt. Pt advised she was feeling much better Don made aware. Call light remains within reach.
[2024-06-01 15:49] VITALS: BP 139/85; PULSE 53; RESP 16; TEMP 36.6; O2SAT 99
== END 2024-06-01 15:50 | disposition home or self-care (01) ==
PROVIDERS: Physician Assistant; Emergency Provider Emergency Medicine
DX: M54.6 Pain in thoracic spine (principal)
CPT/HCPCS: 80053; 81001; 83735; 85025; 96361; 96374; 96375; 99284; J0131; J1100; J1885; J7120

== ENCOUNTER 2025-01-15 17:13 | Emergency (ER) | payer SELFPAY ==
[2025-01-15 17:21] VITALS: BP 149/79; PULSE 96; RESP 13; TEMP 37.2; O2SAT 99; BMI 23.8
[2025-01-15 17:30] VITALS: BP 132/76; PULSE 78; O2SAT 97
--- NOTE | 2025-01-15 17:43 | CT_ITS ---
PROCEDURE INFORMATION: Exam: CT Cervical Spine Without Contrast Exam date and time: 01/15/2025 6:14 PM Age: 64 years old Clinical indication: Neck pain; Additional info: Hit head, neck pain, TODD, nausea TECHNIQUE: Imaging protocol: Computed tomography of the cervical spine without contrast. Radiation optimization: All CT scans at this facility use at least one of these dose optimization techniques: automated exposure control; mA and/or kV adjustment per patient size (includes targeted exams where dose is matched to clinical indication); or iterative reconstruction. COMPARISON: No relevant prior studies available. FINDINGS: Bones: No acute fracture or subluxation. Degenerative changes of the spine. Lungs: Lung apices are normal. Thyroid: 1.2 x 1 x 1.6 cm low-attenuation right lobe thyroid nodule. Soft tissues: Unremarkable. IMPRESSION: 1. No acute fracture or subluxation. 2. Degenerative changes of the spine. 3. 1.2 x 1 x 1.6 cm low-attenuation right lobe thyroid nodule. Follow-up non-emergent thyroid ultrasound is recommended. COMMENTS: Consistent with the [employer]'s Incidental Findings Committee white paper (J Am Rowena Radiol 2015): In patients aged 35 years and older with an incidental thyroid nodule equal to or greater than 1.[address], MRI or extrathyroidal US, further evaluation with dedicated thyroid US is recommended for patients with normal life expectancy and without comorbidities. For smaller nodules without suspicious features, no further evaluation or follow up is recommended.
--- NOTE | 2025-01-15 17:43 | CT_ITS ---
PROCEDURE INFORMATION: Exam: CT Head Without Contrast Exam date and time: 01/15/2025 6:12 PM Age: 64 years old Clinical indication: Pain; Headache; Additional info: Hit head x 2, nausea, TDOD TECHNIQUE: Imaging protocol: Computed tomography of the head without contrast. Radiation optimization: All CT scans at this facility use at least one of these dose optimization techniques: automated exposure control; mA and/or kV adjustment per patient size (includes targeted exams where dose is matched to clinical indication); or iterative reconstruction. COMPARISON: CT HEAD/BRAIN WO CON 12/16/2024 18:12 FINDINGS: Brain: No intracranial hemorrhage. Dural calcifications. Cerebral ventricles: No ventriculomegaly. Paranasal sinuses: Visualized sinuses are unremarkable. No fluid levels. Mastoid air cells: Visualized mastoid air cells are well aerated. Bones: Unremarkable. No acute fracture. Soft tissues: Unremarkable. IMPRESSION: No intracranial hemorrhage or acute fracture.
--- NOTE | 2025-01-15 17:45 | ED_ITS ---
<Statement entered by Elvira Aguilar MD - 01/15/25 20:07> I was consulted by the RUFINA, and we discussed the complexity of the problems being addressed. I approved the treatment and management plan for this patient's care in the emergency department, thus performing a substantive portion of the medical decision making. Elvira Aguilar MD, ARIN, FACEP Discharge Plan Disposition Patient Disposition: Home, Self-Care Prescriptions Prescriptions: No Action methocarbamol 750 mg tablet 750 mg PO Q6H PRN (Reason: muscle spasm) Qty: 20 0RF lidocaine 5 % adhesive patch,medicated 1 patch topical DAILY Qty: 30 0RF Rx Instructions: leave on most painful area for up to 12 hrs amoxicillin 875 mg tablet 875 mg PO Q12H Qty: 20 0RF ibuprofen 600 mg tablet 600 mg PO Q6HP PRN (Reason: Mild Pain) Qty: 30 0RF nitrofurantoin monohyd/m-cryst [Macrobid] 100 mg capsule 100 mg PO BID 5 Days Qty: 10 0RF Rx Instructions: must administer with a meal/food lidocaine 5 % adhesive patch,medicated 1 patch topical DAILY Qty: 15 0RF Rx Instructions: leave on most painful area for up to 12 hrs methocarbamol 500 mg tablet 1,000 mg PO Q8H PRN (Reason: back pain and muscle spasm) Qty: 30 0RF Referrals Follow up/Referrals: Provider,Referral, [Primary Care Provider] - See instructions Activity Restrictions/Add. Instructions Additional Instructions/Restrictions: Today your evaluated in the emergency department and diagnosed with a concussion. You are also found to have a right sided thyroid nodule on your CT scan, please follow-up with your primary care for this for further evaluation. Please return to the ED for worsening of condition. Clinical Impressions Clinical Impression: Thyroid nodule Concussion Qualifiers: Encounter type: initial encounter Loss of consciousness presence/duration: without LOC Qualified Code(s): S06.0X0A - Concussion without loss of consci ousness, initial encounter Instructions Patient Instructions: DI for Headache Print Language Print Language: Romanian Discharge ED Provider: Elvira Aguilar General Adult HPI General Chief complaint: Headache Stated complaint: hit head at work 01/13/25, vision problems, unsteady Time Seen by Provider: 01/15/25 17:34 Mode of Arrival: Wheelchair Source of Information: Patient Description of Symptoms (Recalled from ER Triage Doc. by RN): pt presents to ED with c/o headache. pt reports that 01/13/25, she hit her head on a shelf. 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 pt reports small laceration to top of head, pt reports to feeling swimmy headed. History of Present Illness HPI narrative: patient is a 64-year-old female PMHx cervical cancer s/p hysterectomy (1985) who presents to the ED after hitting her head on the ceiling 2 days ago. Patient states she hit her head, causing immediate laceration to the top of her head, headache, neck pain. Related Data Previous Rx's ?Medication ?Instructions ?Recorded amoxicillin 875 mg tablet 875 mg PO Q12H #20 tabs 01/04/24 ibuprofen 600 mg tablet 600 mg PO Q6HP PRN Mild Pain #30 01/04/24 tabs lidocaine 5 % topical patch 1 patch topical DAILY #15 ea 02/13/24 methocarbamol 500 mg tablet 1,000 mg (2 x 500 mg) PO Q8H PRN 02/13/24 back pain and muscle spasm #30 tabs nitrofurantoin 100 mg PO BID 5 days #10 caps 02/13/24 monohydrate/macrocrystals 100 mg capsule (Macrobid) lidocaine 5 % topical patch 1 patch topical DAILY #30 ea 06/01/24 methocarbamol 750 mg tablet 750 mg PO Q6H PRN muscle spasm #20 06/01/24 tabs Allergies Allergy/AdvReac Type Severity Reaction Status Date / Time No Known Allergies Allergy Verified 01/04/24 18:20 [facility] Disclaimer: The information contained in this section may have been updated after the patient was seen, as this information can be updated by other users. 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 current occupational exposures/hazards: No caffeine: Yes Have you lived/traveled outside [place] in past 30 days?: No Contact w/someone who lives/traveled outside [place] past 30 days?: No Exposure to someone with infectious disease in past 14 days?: No Do you have a fever (greater than 100.4 F or 38 C)?: No Have you tested positive for COVID-19: No Exposed to someone with COVID-19 in past 14 days?: No Do you have a sore throat?: No Do you have a cough?: No Do you have any weakness?: No Do you have any diarrhea?: No Are you experiencing any unusual bleeding?: No Do you have any muscle aches/pain?: No Do you have any abdominal pain?: No Are you experiencing loss of taste or smell?: No Other Medical History Have you received the Flu Vaccine for this season: No Have you received the Pneumonia Vaccine: No ROS Obtained: Yes Systems reviewed as appropriate & no additional complaints except as documented Physical Exam General General appearance: alert and in no apparent distress Head Head exam: normocephalic and other (healing laceration noted to top of head) Eye Eye exam: Present normal appearance, PERRL and EOMI; Absent nystagmus or periorbital tenderness ENT ENT exam: Present normal exam Neck Neck exam: Present normal inspection Chest Chest inspection: Present normal inspection and symmetric chest wall rise; Absent tenderness Respiratory Respiratory exam: Present normal lung sounds bilaterally Cardiovascular Cardiovascular exam: Present regular rate Abdominal Exam Abdominal exam: Present soft and normal bowel sounds; Absent tenderness Extremities Exam Extremities exam: Present normal inspection and full ROM Back Exam Back exam: Present normal inspection and full ROM Neurological Exam Neurological exam: Present alert and oriented X3 Psychiatric Psychiatric exam: Present normal affect and normal mood Skin Skin exam: Present warm and dry Medical Decision Making Medical Records Screening: Per USPSTF and CDC recommendations, given the prevalence of disease in our region, it is our hospital?s policy to screen for HIV and viral Hepatitis for all patients aged 18 and over and those with ongoing risk factors. Randy Inquiry Pt receiving controlled substance: No Vital Signs: 01/15/25 17:21 01/15/25 17:30 01/15/25 18:30 Temperature 98.9 F Temperature Source Oral Pulse Rate 78 76 Pulse Rate [Left Radial] 96 H Respiratory Rate 13 Blood Pressure 132/76 131/74 Blood Pressure [Right Arm] 149/79 H Blood Pressure Mean [Right Arm] 102 Blood Pressure Position 02 Sat by Pulse Oximetry 99 97 94 L Oxygen Delivery Method Room Air Room Air 01/15/25 19:36 Temperature 98.9 F Temperature Source Pulse Rate 78 Pulse Rate [Left Radial] Respiratory Rate 14 Blood Pressure 117/71 Blood Pressure [Right Arm] Blood Pressure Mean [Right Arm] Blood Pressure Position Supine 02 Sat by Pulse Oximetry Oxygen Delivery Method Room Air Orders (Tests/Meds): ED MEDICATIONS Discontinued Medications Generic Name Dose Route Start Last Admin Trade Name Dipti PRN Reason Stop Dose Admin Acetaminophen 1,000 mg 01/15/25 17:44 01/15/25 17:55 Acetaminophen 1,000mg/100ml Vial IV 01/15/25 17:45 1,000 mg ONCE ONE Administration Sodium Chloride 10 ml 01/15/25 17:44 Sodium Chloride 0.9% 10ml Flush Syringe IV 02/14/25 17:43 NEEDED PRN Maintain IV Site ORDERS Category Date Time Status CT cervical spine wo con Stat Cat Scan 01/15/25 17:[address] head/brain wo con Stat Cat Scan 01/15/25 17:43 Completed HIV Combo Stat Lab 01/15/25 17:23 Ordered Hepatitis C Ab Qual. W/ RFX Stat Lab 01/15/25 17:23 Ordered Medical Decision Narrative: In summary, patient is a 64-year-old female PMHx cervical cancer s/p hysterectomy (1985) who presents to the ED after hitting her head on the ceiling 2 days ago. Patient states she hit her head, causing immediate laceration to the top of her head, headache, neck pain. Patient states over the past 2 days she has progressively worsened with headache, nausea and dizziness. She describes her headache as a frontal headache, 8 out of 10, stabbing pain. She states she has pain with EOM and photosensitivity. She has not had any medication prior to arrival. Denies any previous head injury. States she does not see a PCP within the past several years. Reports a history of tobacco use however has been quit for 3 years. Denies EtOH use. Denies vaping. Denies drug use. Denies fever, chills, loss of consciousness, chest pain, shortness of breath, abdominal pain, falls. Upon initial evaluation patient is alert, oriented and cooperative. She is hemodynamically stable. PERRLA. No nystagmus. Posterior C-spine tenderness. Other neuroexam unremarkable. Differential diagnosis include ICH, migraine, headache, concussion, among others. Discussed with patient that we will administer acetaminophen and proceed to head CT and C-spine CT. Final read of the head CT unremarkable for any acute intracranial hemorrhage or fracture. Final read of the C-spine is no acute fracture or subluxation, degenerative changes of the spine, right lobe thyroid nodule recommends follow- up. Upon reassessment, patient condition has improved and her symptoms have almost completely resolved at this time. I discussed with patient she most likely has a concussion, we discussed concussion precautions. Advised her she will need to follow-up with her PCP within 3 days. I discussed with her that she has a right lobe thyroid nodule that will need follow-up with ultrasound and maybe biopsy depending on results. Patient verbalized understanding. Upon discharge, she was hemodynamically stable and ambulatory from the ED without difficulty. Critical Care Critical Care Time Critical Care Time: No
[2025-01-15] MEDS: ACETAMINOPHEN 1,000MG/100ML VIAL 1000 MG IV (17:55)
[2025-01-15 18:30] VITALS: BP 131/74; PULSE 76; O2SAT 94
[2025-01-15 19:36] VITALS: BP 117/71; PULSE 78; RESP 14; TEMP 37.2; O2SAT 95
== END 2025-01-15 19:37 | disposition home or self-care (01) ==
PROVIDERS: Emergency Provider Student in an Organized Health Care Education/Training Program
DX: S06.0XAA Concussion with loss of consciousness status unknown, initial encounter (principal); R51.9 Headache, unspecified; R42 Dizziness and giddiness; H53.9 Unspecified visual disturbance; M54.2 Cervicalgia; R26.81 Unsteadiness on feet; E04.1 Nontoxic single thyroid nodule; W22.8XXA Striking against or struck by other objects, initial encounter; Y93.89 Activity, other specified; Y92.89 Other specified places as the place of occurrence of the external cause
CPT/HCPCS: 70450; 72125; 96374; 99284; J0131